=== PATIENT | male | born 1990 | race African-American/Black ===

== ENCOUNTER 2017-07-08 16:47 | Emergency (ER) | payer SELFPAY ==
[~2017-07-08] VITALS: Ht 188 cm; Wt 99.8 kg
[2017-07-08] MEDS ORDERED: NKM (17:15)
[2017-07-08] MEDS ORDERED: Lidocaine 1% Plain 30 ml INJ ONE (18:00)
[2017-07-08] MEDS ORDERED: Bacitracin Oint UD TOPIC ONE (18:00)
[2017-07-08] MEDS ORDERED: CEPHALEXIN500 MG ORAL (19:13)
[2017-07-08] MEDS ORDERED: PROAIR HFA8.5 GM INH (19:13)
[2017-07-08] MEDS ORDERED: BACTRIM DS TAB1 EAC1 ORAL (19:13)
[2017-07-08 19:30] VITALS: BP 119/75
--- NOTE | 2017-07-08 19:51 | Emergency Room Report ---
History of Present Illness General Chief Complaint: General Complaint Source: Patient Present Illness [facility] The patient is a 27-year-old male presenting for multiple complaints including possible skin infection, sore throat, and cough. The patient states that he initially injured his head approximately one year prior while in retirement and sustained a laceration to the scalp. He states that the area then became red and swollen with some white discharge and has persisted for the last few months. He states that he has never been treated for this. Pain is a 9/10 sharp sensation, worse with touch. He denies any radiating pain. He is also complaining of sore throat and cough which began approximately one week prior. He denies any known sick contacts recent travel. Pain described as a 5/10 dull ache to the back of the throat and does not radiate. Worse with swallowing. He also admits to a yellow sputum with cough. He missed a history of asthma and has not been using albuterol. He denies any other symptoms including N, V, F, chills, SOB Allergies: Coded Allergies: IBUPROFEN (Verified Allergy, Unknown, 07/08/17) Patient History Past Medical History: see triage record Pertinent Family History: none Reviewed Nursing Documentation: PMH: Agreed, PSxH: Agreed Nursing Documentation-PMH Past Medical History: No Stated History Review of Systems All Other Systems: negative except mentioned in HPI Physical Exam Vital Signs Date Time Temp Pulse Resp B/P (MAP) Pulse Ox O2 Delivery O2 Flow Rate FiO2 07/08/17 17:10 98.8 67 16 112/71 98 Room Air Sp02 EP Interpretation: reviewed, normal General Appearance: no apparent distress, alert, GCS 15, non-toxic Head: normocephalic, atraumatic Eyes: bilateral eye normal inspection, bilateral eye PERRL ENT: hearing grossly normal, no angioedema, normal voice, uvula midline, tonsillar swelling, pharyngeal erythema Neck: full range of motion, supple/symm/no masses Respiratory: chest non-tender, no rhonchi, no respiratory distress, no accessory muscle use, wheezing - mild diffuse Cardiovascular #1: regular rate, rhythm, no edema Neurologic: alert, oriented x3, responsive, motor strength/tone normal, sensory intact, speech normal Psychiatric: judgement/insight normal, memory normal, mood/affect normal, no suicidal/homicidal ideation Skin: other - 3cm in diameter erythema with fluctuance at posterior scalp. White drainage Lymphatic: no adenopathy, adenopathy - cervical Procedures Incision and Drainage Incision and Drainage : Consent: Verbal Site: scalp Blade Size: 11 I & D Procedure: betadine prep, sterile drapes applied, sterile dressing applied Wound Location: head Wound's Depth, Shape: superficial, linear Wound Length (cm): 1 Wound Explored: contaminated Irrigated w/ Saline (ccs): 100 Anesthesia: 1% Lidocaine Volume Anesthetic (ccs): 2 Splint Applied?: No Sling Applied?: No Patient Tolerated: Well Complications: None Medical Decision Making PA Attestation Dr. Harrell is my supervising physician. Patient management was discussed with my supervising physician Diagnostic Impression: Primary Impression: Asthma Qualified Codes: J45.20 - Mild intermittent asthma, uncomplicated Additional Impressions: Abscess Pharyngitis, acute Qualified Codes: J02.9 - Acute pharyngitis, unspecified ER Course The patient is a 27-year-old male presenting for multiple complaints including possible skin infection, sore throat, and cough. Differential diagnoses considered but not limited to: abscess, cellulitis, insect bite, tinea, among others Differential diagnosis include but not limited to pharyngitis, sinusitis, AOM, bronchitis, PNA Physical exam: Vitals within normal limits. Afebrile. No apparent distress HEENT exam: There is bilateral tonsillar edema, erythema. Uvula midline. Moist mucous membranes. There is bilateral cervical lymphadenopathy. Lungs have mild wheezing bilaterally Scalp: posterior scalp has 3cm in diameter fluctuant, tender, erythematous abscess. White drainage Betadine prep was used to clean the skin and surrounding area. One percent lidocaine without epinephrine was used to anesthetize the are of planned incision. A #11 blade was used to make an incision in the central area of fluctuance approximately 1/3 the size of the diameter of the abcess. Once the incision was made, purulent material was expressed with blood. Blunt dissection was then used to release loculations and expressed more purulent material. Once only blood appeared to be expressed from the incision, normal saline was used to irrigate the inside of the abscess. The wound was then cleaned and sterile dressing applied. The patient will be discharged home with prescription for Keflex and Bactrim. He is also given refill of albuterol for asthma. ER precautions given Last Vital Signs Date Time Temp Pulse Resp B/P (MAP) Pulse Ox O2 Delivery O2 Flow Rate FiO2 07/08/17 19:30 98.4 69 19 119/75 98 Room Air Status: improved Disposition: HOME, SELF-CARE Condition: Improved Scripts Albuterol Sulfate* (PROAIR HFA*) 8.5 Gm Hfa.aer.ad 2 PUFFS INH Q6H, #8.5 GM 0 Refills Prov: ULISSES ARRIOLA.A. 07/08/17 Trimethoprim/Sulfamethoxazole 160/800* (BACTRIM DS TABLET*) 1 Each Tablet 1 TAB ORAL TWICE A DAY, #14 TAB Prov: ULISSES ARRIOLA.A. 07/08/17 Cephalexin* (KEFLEX*) 500 Mg Capsule 500 MG ORAL Q6HR, #28 CAP 0 Refills Prov: ULISSES ARRIOLA.A. 07/08/17 Patient Instructions: Asthma, Adult, Abscess, Sore Throat Additional Instructions: I discussed my findings with the patient. All questions and concerns have been answered. Treatment and medication compliance have been addressed. I advised the patient that they need to follow up with PMD in 3-5 days. Return to ED if symptoms worsen, new symptoms arise, or if needed for any reason. Patient verbalized understanding of discharge instructions. ULISSES ARRIOLA Jul 08, 2017 19:51
== END 2017-07-08 19:30 | disposition home or self-care (01) ==
LOC: EMR 18:11
DX: J45.20 Mild intermittent asthma, uncomplicated (principal); J02.9 Acute pharyngitis, unspecified; L02.811 Cutaneous abscess of head [any part, except face]; Z88.6 Allergy status to analgesic agent
CPT/HCPCS: 10060; 99284; J2001